=== PATIENT | male | born 1990 | race American Indian/Alaskan Native ===

== ENCOUNTER 2016-10-28 22:41 | Emergency (ER) | payer SELFPAY ==
[2016-10-28 23:12] VITALS: BP 126/87
[2016-10-28 23:58] LABS: Basophils % (Auto) 0.6 % (0.0-1.8); Eosinophils % (Auto) 0.9 % (0.0-4.3); Hematocrit 46.6 % (35.5-45.6); Hemoglobin 15.8 gm/dl (11.8-15.2); Mean Corpuscular HGB Conc 34 % (32-34); Mean Corpuscular Hemoglobin 31 pg (28-32); Mean Corpuscular Volume 92 fl (84-94); Platelet Count 216 K/mm3 (140-440); Red Blood Count 5.05 M/mm3 (3.65-5.03); Red Cell Distribution Width 13.2 % (13.2-15.2); White Blood Count 17.3 K/mm3 (4.5-11.0)
[2016-10-29 00:11] LABS: INR 1.14 (0.87-1.13)
[2016-10-29 00:16] LABS: Anion Gap 22 mmol/L; BUN/Creatinine Ratio 19.16; Blood Urea Nitrogen 23 mg/dL (9-20); Carbon Dioxide 26 mmol/L (22-30); Chloride 90.8 mmol/L (98-107); Glucose 97 mg/dL (75-100); Potassium 4.4 mmol/L (3.6-5.0); Sodium 134 mmol/L (137-145)
[2016-10-29 00:38] LABS: Creatine Kinase MB 7.5 ng/mL (0.0-4.0)
--- NOTE | 2016-11-02 01:09 | ED Elopement Review ---
ED Pt Elopement review - Results review Lab results: Laboratory Tests 10/28/16 10/28/16 10/28/16 23:41 23:41 23:41 WBC 17.3 H RBC 5.05 H Hgb 15.8 H Hct 46.6 H MCV 92 MCH 31 MCHC 34 RDW 13.2 Plt Count 216 Lymph % (Auto) 19.9 [place] % (Auto) 13.3 H Eos % (Auto) 0.9 Baso % (Auto) 0.6 Lymph # 3.4 [place] # 2.3 H Eos # 0.2 Baso # 0.1 Seg Neutrophils % 65.3 Seg Neutrophils # 11.3 H PT 14.5 INR 1.14 H APTT 36.0 Sodium 134 L Potassium 4.4 Chloride 90.8 L Carbon Dioxide 26 Anion Gap 22 BUN 23 H Creatinine 1.2 Estimated GFR > 60 BUN/Creatinine Ratio 19.16 Glucose 97 Calcium 10.0 Total Creatine Kinase CK-MB (CK-2) CK-MB (CK-2) Rel Index Troponin T < 0.010 10/28/16 10/29/16 10/29/16 23:41 03:36 05:11 WBC RBC Hgb Hct MCV MCH MCHC RDW Plt Count Lymph % (Auto) [place] % (Auto) Eos % (Auto) Baso % (Auto) Lymph # [place] # Eos # Baso # Seg Neutrophils % Seg Neutrophils # PT INR APTT Sodium Potassium Chloride Carbon Dioxide Anion Gap BUN Creatinine Estimated GFR BUN/Creatinine Ratio Glucose Calcium Total Creatine Kinase 862 H CK-MB (CK-2) 7.5 H CK-MB (CK-2) Rel Index 0.8 Troponin T < 0.010 < 0.010 - Call Back decision Pt Call Back Decision: No action required
== END 2016-10-29 03:30 | disposition left against medical advice (07) ==
LOC: ED 22:41
DX: M79.672 Pain in left foot (principal); Z53.21 Procedure and treatment not carried out due to patient leaving prior to being seen by health care provider
CPT/HCPCS: 36415; 80048; 82550; 82553; 84484; 85025; 85610; 85730; 93005; 93010